=== PATIENT | male | born 1955 | race Asian ===

== ENCOUNTER 2018-02-06 06:07 | Inpatient (IN) | payer OTHER ==
[~2018-02-06] VITALS: Ht 170.2 cm; Wt 73.0 kg
[~2018-02-06 06:07] MED LIST: OMEP-110 PO
[2018-02-06 06:46] VITALS: BP 149/91
[2018-02-06] MEDS ORDERED: LACTATED RINGERS 1,000 ML IV SCH (06:46)
[2018-02-06] MEDS ORDERED: LIDOCAINE-MPF 1%, 2ML ONE (07:16)
[2018-02-06] MEDS ORDERED: ACETAMINOPHEN 500 MG TABLET PO ONE (07:30)
[2018-02-06] MEDS ORDERED: LIDOCAINE-MPF 1%, 2ML INFIL ONE (07:30)
[2018-02-06] MEDS ORDERED: OxyconTIN ER 10 MG TAB.ER PO ONE (07:30)
[2018-02-06] MEDS ORDERED: ONDANSETRON ODT 8 MG PO ONE (07:30)
[2018-02-06] MEDS ORDERED: SCOPOLAMINE PATCH, 1.5MG PATCH.TD72 TD ONE (07:30)
[2018-02-06] MEDS ORDERED: MEPERIDINE/PF 25MG/0.5ML IVPush PRN (13:30)
[2018-02-06] MEDS ORDERED: MORPHINE SULFATE 4 MG/ML, 1ML IVPush PRN (13:30)
[2018-02-06] MEDS ORDERED: hydrALAzine 20 MG/ML, 1ML IV PRN ×3 (13:30→15:30)
[2018-02-06] MEDS ORDERED: PROMETHAZINE 25 MG/ML, 1ML IV PRN (13:30)
[2018-02-06] MEDS ORDERED: LABETALOL 5MG/ML, 20ML IV PRN (13:30)
[2018-02-06] MEDS ORDERED: PROMETHAZINE 12.5 MG SUPP PR PRN (13:30)
[2018-02-06] MEDS ORDERED: ALBUTEROL SULFATE 2.5 MG/3 ML NPPB PRN (13:30)
[2018-02-06] MEDS ORDERED: OXYcodone 5 MG/5 ML ORAL.SOL UDC PO PRN (13:30)
[2018-02-06] MEDS ORDERED: ONDANSETRON ODT 8 MG PO PRN (13:30)
[2018-02-06] MEDS ORDERED: MIDAZOLAM 1 MG/ML, 2ML IV PRN (13:30)
[2018-02-06] MEDS ORDERED: FENTANYL PF 100 MCG/2ML IV PRN (13:30)
[2018-02-06] MEDS ORDERED: FENTANYL PF 100 MCG/2ML ONE (14:12)
[2018-02-06] MEDS ORDERED: OXYcodone 5 MG/5 ML ORAL.SOL UDC ONE (14:13)
[2018-02-06] MEDS ORDERED: ACETAMINOPHEN 650 MG SUPP PR PRN ×2 (15:30)
[2018-02-06] MEDS ORDERED: ACETAMINOPHEN 650 MG/20.3 ML UDC PO PRN (15:30)
[2018-02-06] MEDS ORDERED: ACETAMINOPHEN 325 MG TABLET PO PRN (15:30)
[2018-02-06] MEDS ORDERED: HYDROcodone/APAP 5/325 TABLET PO PRN ×2 (15:30)
[2018-02-06] MEDS ORDERED: ONDANSETRON ODT 4 MG PO PRN (15:30)
[2018-02-06] MEDS ORDERED: ONDANSETRON 2MG/ML, 2ML IVPush PRN (15:30)
[2018-02-06] MEDS ORDERED: ONDANSETRON 2MG/ML, 2ML IV PRN (15:30)
[2018-02-06] MEDS: CALCIUM/VITAMIN D3 250-125 TABLET PO SCH ×2 (16:45→20:21)
[2018-02-06 19:19] VITALS: BP 127/79
[2018-02-06] MEDS: SODIUM CHLORIDE FLUSH 10ML SYR IVF SCH (20:21)
[2018-02-07 00:04] VITALS: BP 105/64
[2018-02-07 04:18] VITALS: BP 145/82
[2018-02-07 05:41] LABS: CALCIUM 8.2 mg/dL (8.5-10.1)
[2018-02-07] MEDS ORDERED: LEVOTHYROXINE 137 MCG TABLET PO SCH (06:00)
[2018-02-07] MEDS ORDERED: OMEPRAZOLE 20 MG CAPSULE.DR PO SCH (07:30)
[2018-02-07] MEDS: SODIUM CHLORIDE FLUSH 10ML SYR IVF SCH (07:44)
[2018-02-07] MEDS: CALCIUM/VITAMIN D3 250-125 TABLET PO SCH (07:44)
[2018-02-07 07:50] VITALS: BP 124/70
[2018-02-07] MEDS ORDERED: LEVO137T2 PO (08:43)
[2018-02-07] MEDS ORDERED: CALC-112 PO (08:43)
[2018-02-07] MEDS ORDERED: HYDR-3240 PO (08:45)
== END 2018-02-07 09:35 | disposition home or self-care (01) | DRG 626 ==
LOC: ORIP 06:07 → 4NOR 15:00 → DCLOUNGE 02-07 09:28
PROVIDERS: ADMIT Surgery; ATTEND Surgery
PROC: 07T10ZZ Resection of Right Neck Lymphatic, Open Approach (ICD-10-PCS; 2018-02-06)
PROC: 0GSP0ZZ Reposition Left Inferior Parathyroid Gland, Open Approach (ICD-10-PCS; 2018-02-06)
PROC: 0GSN0ZZ Reposition Right Inferior Parathyroid Gland, Open Approach (ICD-10-PCS; 2018-02-06)
PROC: 05B Upper Veins, Excision (ICD-10-PCS; 2018-02-06)
PROC: 0WB60ZZ Excision of Neck, Open Approach (ICD-10-PCS; 2018-02-06)
PROC: 0GTK0ZZ Resection of Thyroid Gland, Open Approach (ICD-10-PCS; principal; 2018-02-06 07:30)
DX: C73 Malignant neoplasm of thyroid gland (principal); I82.C11 Acute embolism and thrombosis of right internal jugular vein; K21.9 Gastro-esophageal reflux disease without esophagitis; E21.4 Other specified disorders of parathyroid gland; Z91.013 Allergy to seafood; Z87.891 Personal history of nicotine dependence
CPT/HCPCS: 36415; 80053; 82310; 83970; 85025; 86850; 86900; 88305; 88307; 88331; 93005; C1729; J0171; J0690; J1100; J2250; J2704; J3010; J3490; Q0162; C1760; J0330; J7120

== ENCOUNTER 2018-06-29 05:31 | Day surgery (SDC) | payer OTHER ==
[~2018-06-29] VITALS: Ht 170.2 cm; Wt 73.4 kg
[~2018-06-29 05:31] MED LIST changes: +CALC-112 PO; +HYDR-3240 PO; +LEVO137T2 PO
[2018-06-29 06:23] VITALS: BP 158/91
[2018-06-29] MEDS ORDERED: SODIUM CHLORIDE 0.9% 1,000 ML IV SCH (06:39)
[2018-06-29] MEDS ORDERED: FENTANYL PF 100 MCG/2ML ONE ×2 (07:38)
[2018-06-29] MEDS ORDERED: MIDAZOLAM 1 MG/ML, 5ML ONE (07:38)
[2018-06-29] MEDS ORDERED: NALOXONE 1 MG/ML, 2ML ONE (07:38)
[2018-06-29] MEDS ORDERED: FLUMAZENIL 0.1 MG/1 ML, 5ML ONE (07:38)
[2018-06-29] MEDS ORDERED: LIDOCAINE-MPF 1%, 5ML ONE (07:52)
== END 2018-06-29 10:00 | disposition home or self-care (01) ==
LOC: OUT 05:31
PROVIDERS: ATTEND Surgery
DX: C73 Malignant neoplasm of thyroid gland (principal); F10.21 Alcohol dependence, in remission; E89.0 Postprocedural hypothyroidism; Z98.890 Other specified postprocedural states; Z88.8 Allergy status to other drugs, medicaments and biological substances; Z91.013 Allergy to seafood; Z87.891 Personal history of nicotine dependence
CPT/HCPCS: 20220; 77012; 88305; 99156; J2250; J3010; J7030; 99157; J2310

== ENCOUNTER → 2019-02-07 | Outpatient (CLI) | payer OTHER | END | disposition home or self-care (01) | LOC: RAD 10:34 | PROVIDERS: ATTEND Internal Medicine Endocrinology, Diabetes & Metabolism | DX: C73 Malignant neoplasm of thyroid gland (principal); E89.0 Postprocedural hypothyroidism | CPT/HCPCS: 79005; A9517 ==

== ENCOUNTER 2019-02-21 07:45 | Outpatient (CLI) | payer OTHER | END 2019-02-21 23:59 | disposition home or self-care (01) | LOC: RAD 07:45 | PROVIDERS: ATTEND Internal Medicine Endocrinology, Diabetes & Metabolism | DX: C73 Malignant neoplasm of thyroid gland (principal); E89.0 Postprocedural hypothyroidism | CPT/HCPCS: 78018 ==

== ENCOUNTER 2019-07-06 14:11 | Outpatient (CLI) | payer OTHER ==
[2019-07-06] MEDS ORDERED: GADOTERATE 7.5 MMOL/15 ML SYR ONE (15:54)
== END 2019-07-06 23:59 | disposition home or self-care (01) ==
LOC: RAD 14:11
PROVIDERS: ATTEND Nurse Practitioner Family
DX: C73 Malignant neoplasm of thyroid gland (principal); M41.84 Other forms of scoliosis, thoracic region
CPT/HCPCS: 70543; 71552; A9575

== ENCOUNTER 2020-01-17 13:11 | Outpatient (CLI) | payer SELFPAY ==
[2020-01-17] MEDS ORDERED: LIDOCAINE 1%, 10ML ONE (13:17)
== END 2020-01-17 23:59 | disposition home or self-care (01) ==
LOC: RAD 13:11
PROVIDERS: ATTEND Internal Medicine Endocrinology, Diabetes & Metabolism
DX: R22.2 Localized swelling, mass and lump, trunk (principal); C73 Malignant neoplasm of thyroid gland
CPT/HCPCS: 20206; 71045; 76942; 88305; 88341; 88342; J3490

== ENCOUNTER 2021-02-09 12:02 | Outpatient (CLI) | payer OTHER ==
[~2021-02-09 12:02] MED LIST changes: +HYDR-2214 PO; -HYDR-3240 PO
[2021-02-09] MEDS ORDERED: LIDOCAINE 1%, 10ML ONE (13:11)
== END 2021-02-09 23:59 | disposition home or self-care (01) ==
LOC: RAD 12:02
PROVIDERS: ATTEND Internal Medicine Endocrinology, Diabetes & Metabolism
DX: R22.1 Localized swelling, mass and lump, neck (principal); C73 Malignant neoplasm of thyroid gland
CPT/HCPCS: 20206; 76942; 88112; 88305; 88342; J3490; 10005

== ENCOUNTER 2021-03-11 09:39 | Outpatient (CLI) | payer OTHER ==
[2021-03-11] MEDS ORDERED: OMNIPAQUE 350 MG/ML, 100ML BOTTLE ONE (17:38)
[2021-03-26] MEDS ORDERED: LEVO137T2 PO (12:29)
== END 2021-03-11 23:59 | disposition home or self-care (01) ==
LOC: CFH 09:39
PROVIDERS: ATTEND Student in an Organized Health Care Education/Training Program
DX: C73 Malignant neoplasm of thyroid gland (principal); R22.1 Localized swelling, mass and lump, neck
CPT/HCPCS: 70491; 82565; Q9967

== ENCOUNTER → 2021-03-26 | Outpatient (CLI) | payer OTHER ==
[2021-03-26 13:09] LABS: BASOPHILS % (AUTO) 1 % (0-1); EOSINOPHILS % (AUTO) 3 % (1-7); LYMPHOCYTES % (AUTO) 41 % (22-44); MEAN CORPUSCULAR HGB CONC 34.2 g/dL (33.2-36.2); MEAN PLATELET VOLUME 6.8 fL (7.4-10.4); MONOCYTES % (AUTO) 8 % (2-9); NEUTROPHILS % (AUTO) 47 % (42-75); PLATELET COUNT 196 x10^3/uL (130-400); RED BLOOD COUNT 4.58 x10^6/uL (4.38-5.82)
[2021-03-26 13:26] LABS: ALANINE AMINOTRANSFERASE 47 U/L (12-78); ALBUMIN 3.5 g/dL (3.4-5.0); ALKALINE PHOSPHATASE 108 U/L (45-117); CREATININE 0.87 mg/dL (0.7-1.3); TOTAL PROTEIN 7.6 g/dL (6.4-8.2)
[2021-03-26 13:38] LABS: ANION GAP 5 mmol/L (5-15); CHLORIDE 107 mmol/L (98-107)
== END | disposition home or self-care (01) ==
LOC: STAR 12:10
PROVIDERS: ATTEND Student in an Organized Health Care Education/Training Program
DX: Z01.818 Encounter for other preprocedural examination (principal); C73 Malignant neoplasm of thyroid gland; R22.1 Localized swelling, mass and lump, neck; Z20.822 Contact with and (suspected) exposure to COVID-19
CPT/HCPCS: 36415; 80053; 85025; 93005; U0003; U0005

== ENCOUNTER 2021-03-31 12:37 | Inpatient (IN) | payer OTHER ==
[~2021-03-31] VITALS: Ht 172.7 cm; Wt 66.9 kg
[2021-03-31 13:22] VITALS: BP 133/82
[2021-03-31] MEDS ORDERED: CHLORHEXIDINE 15 ML UDC ONE (13:24)
[2021-03-31] MEDS ORDERED: CHLORHEXIDINE 15 ML UDC PO ONE (13:30)
[2021-03-31] MEDS ORDERED: LACTATED RINGERS 1,000 ML IV SCH (13:30)
[2021-03-31] MEDS ORDERED: LIDOCAINE/PF 1%, 30ML ONE (13:37)
[2021-03-31] MEDS ORDERED: EPINEPHRINE 1 MG/ML, 1ML ONE ×2 (13:37→13:53)
[2021-03-31] MEDS ORDERED: [UNRECOGNIZED DRUG - OTHER] PO (13:52)
[2021-03-31] MEDS ORDERED: LIDOCAINE-MPF 2% ,5ML ONE (14:31)
[2021-03-31] MEDS ORDERED: MIDAZOLAM 1 MG/ML, 2ML ONE (14:32)
[2021-03-31] MEDS ORDERED: FENTANYL PF 250 MCG/5ML ONE (14:32)
[2021-03-31] MEDS ORDERED: PROMETHAZINE 25 MG/ML, 1ML IVPush PRN ×2 (15:00→18:30)
[2021-03-31] MEDS ORDERED: OXYcodone 5 MG/5 ML ORAL.SOL UDC PO PRN (15:00)
[2021-03-31] MEDS ORDERED: EPHEDRINE 50 MG/ML, 1ML IVPush PRN ×2 (15:00→18:30)
[2021-03-31] MEDS ORDERED: LABETALOL 5MG/ML, 20ML IV PRN ×2 (15:00→18:30)
[2021-03-31] MEDS ORDERED: hydrALAzine 20 MG/ML, 1ML IV PRN ×3 (15:00→18:30)
[2021-03-31] MEDS ORDERED: ACETAMINOPHEN 325 MG TABLET PO PRN ×2 (15:00→18:30)
[2021-03-31] MEDS ORDERED: ONDANSETRON 2MG/ML, 2ML IVPush PRN ×3 (15:00→18:30)
[2021-03-31] MEDS ORDERED: KETOROLAC 30 MG/1 ML ONE (15:54)
[2021-03-31] MEDS ORDERED: SUCCINYLCHOLINE 20 MG/ML, 10ML ONE (15:54)
[2021-03-31] MEDS ORDERED: CEFAZOLIN 1,000 MG ONE (15:54)
[2021-03-31] MEDS ORDERED: DEXAMETHASONE 4 MG/ML, 1ML ONE (15:54)
[2021-03-31] MEDS ORDERED: ROCURONIUM 10 MG/ML,10ML ONE (15:54)
[2021-03-31] MEDS ORDERED: ONDANSETRON 2MG/ML, 2ML ONE (15:54)
[2021-03-31] MEDS ORDERED: PROPOFOL 10 MG/ML, 20ML ONE (15:54)
[2021-03-31] MEDS ORDERED: LIDOCAINE 1%-EPI 1:100K, 20ML INFIL ONE (16:14)
[2021-03-31] MEDS ORDERED: BACITRACIN OINT 500U/GM, 15 GM ONE (17:56)
[2021-03-31] MEDS ORDERED: FENTANYL PF 100 MCG/2ML ONE ×3 (17:57→19:04)
[2021-03-31] MEDS ORDERED: HYDROmorphone 1 MG/ML, 1ML INJ IVPush PRN (18:30)
[2021-03-31] MEDS ORDERED: FENTANYL PF 100 MCG/2ML IV PRN (18:30)
[2021-03-31] MEDS ORDERED: HYDROcodone/APAP 5/325 TABLET PO PRN (18:30)
[2021-03-31] MEDS ORDERED: METHOCARBAMOL 1,000 MG in DEXTROSE 5% 100 ML IV PRN (18:30)
[2021-03-31] MEDS ORDERED: MEPERIDINE/PF 25MG/0.5ML IVPush PRN (18:30)
[2021-03-31] MEDS ORDERED: LORazepam 2 MG/ML, 1ML IVPush PRN (18:30)
[2021-03-31] MEDS ORDERED: DIPHENHYDRAMINE 25 MG CAPSULE PO PRN (18:30)
[2021-03-31] MEDS ORDERED: morphine SULFATE 10 MG/ML, 1ML IV PRN (18:30)
[2021-03-31] MEDS ORDERED: OXYcodone 5 MG/5 ML ORAL.SOL UDC ONE ×2 (19:04→19:19)
[2021-03-31] MEDS: OXYcodone 5 MG/5 ML ORAL.SOL UDC PO PRN ×2 (19:05→19:20)
[2021-03-31] MEDS: FENTANYL PF 100 MCG/2ML IV PRN ×2 (19:10→19:15)
[2021-03-31] MEDS ORDERED: HYDROmorphone 1 MG/ML, 1ML INJ ONE (19:19)
[2021-03-31] MEDS: HYDROmorphone 1 MG/ML, 1ML INJ IVPush PRN ×2 (19:20→19:35)
[2021-03-31] MEDS: POTASSIUM CHLORIDE 20 MEQ in D5%-0.45% NACL 1,000 ML IV SCH (21:15)
[2021-03-31] MEDS: CEFAZOLIN PMX 2GM/50ML 50 ML IVPB SCH (23:50)
[2021-04-01 00:45] VITALS: BP 150/72
[2021-04-01 04:15] VITALS: BP 119/71
[2021-04-01] MEDS ORDERED: OMEPRAZOLE 20 MG CAPSULE.DR PO SCH (06:00)
[2021-04-01] MEDS ORDERED: LEVOTHYROXINE 137 MCG TABLET PO SCH (06:00)
[2021-04-01 06:50] VITALS: BP 118/67
[2021-04-01] MEDS: CEFAZOLIN PMX 2GM/50ML 50 ML IVPB SCH ×2 (07:56→15:30)
[2021-04-01] MEDS: POTASSIUM CHLORIDE 20 MEQ in D5%-0.45% NACL 1,000 ML IV SCH (11:49)
[2021-04-01 14:03] VITALS: BP 149/76
== END 2021-04-01 16:19 | disposition home or self-care (01) | DRG 630 ==
LOC: ORIP 12:37 → 4NE 20:33
PROVIDERS: ADMIT Student in an Organized Health Care Education/Training Program; ATTEND Student in an Organized Health Care Education/Training Program
PROC: 0KB20ZZ Excision of Right Neck Muscle, Open Approach (ICD-10-PCS; 2021-03-31)
PROC: 07T10ZZ Resection of Right Neck Lymphatic, Open Approach (ICD-10-PCS; principal; 2021-03-31 15:00)
DX: C73 Malignant neoplasm of thyroid gland (principal); R22.1 Localized swelling, mass and lump, neck
CPT/HCPCS: 36415; J3490; 86850; 86900; 88305; C1729; G0378; J0171; J0690; J1100; J1170; J1885; J2250; J2405; J2704; J3010; J3480; J0330; J2800; J7120